=== PATIENT | female | born 1995 | race Caucasian/White ===

== ENCOUNTER 2016-05-22 19:31 | Emergency (ER) | payer OTHER ==
[~2016-05-22] VITALS: Ht 157.5 cm; Wt 88.6 kg
[~2016-05-22 19:31] MED LIST: KEFLEX500 MG PO; MAGIC MOUTHWASH1 ML MM; NORCO 5/3251 TABLET PO; SILVADENE20 GM TP; ZANTAC150 MG PO
[2016-05-22 20:43] LABS: ADD MIUA? YES; BILIRUBIN NEGATIVE; BLOOD NEGATIVE; COLOR YELLOW ((YELLOW)); GLUCOSE (STRIP) NEGATIVE; KETONES NEGATIVE; LEUKOCYTES LARGE; NITRITE NEGATIVE; PROTEIN (STRIP) NEGATIVE; SPECIFIC GRAVITY 1.019 (1.000-1.030); UROBILINOGEN 0.2 MG/DL (0.2-1.0)
[2016-05-22 20:55] LABS: BACTERIA 3+; CASTS NONE SEEN /LPF; CRYSTALS NONE SEEN; EPITHELIAL CELLS 1+; MUCUS NONE SEEN; PATHOLOGICAL CAST NONE SEEN; SMALL ROUND CELL NONE SEEN; UCUL ADDED? YES; WHITE BLOOD CELLS 20-30 /HPF (0-5); YEAST-LIKE CELL NONE SEEN
[2016-05-22 21:03] LABS: EOSINOPHIL (%) 0.5 % (0-5); HEMATOCRIT 36.4 % (36.0-46.0); IMMATURE GRANULOCYTE (%) 0.1 % (0.0-0.7); IMMATURE GRANULOCYTE COUNT 0.1 K/uL; MCH 30.1 PG (29.0-34.0); MCHC 34.6 G/DL (30.0-36.0); MCV 86.9 FL (83-99); MEAN PLAT.VOLUME 8.7 uM^3 (9.5-12.4); MONOCYTE (%) 9.5 % (3-12); MONOCYTE COUNT 0.7 K/uL (0-0.8); NEUTROPHIL (%) 61.8 % (45-76); NEUTROPHIL COUNT 4.6 K/uL (1.8-6.4); PLATELET COUNT 313 K/uL (156-360); RBC DIS.WIDTH-CV 11.6 % (11.8-14.6); RBC DIS.WIDTH-SD 35.2 % (39-53); RED BLOOD COUNT 4.19 M/uL (3.80-5.20); WHITE BLOOD COUNT 7.4 K/uL (4.1-10.2)
[2016-05-22] MEDS ORDERED: KEFLEX500 MG PO (22:51)
[2016-05-22 22:58] VITALS: BP 123/78
== END 2016-05-22 22:59 | disposition home or self-care (01) ==
LOC: EME 19:31
PROVIDERS: Physician Assistant
DX: O23.41 Unspecified infection of urinary tract in pregnancy, first trimester (principal); O20.9 Hemorrhage in early pregnancy, unspecified; Z3A.01 Less than 8 weeks gestation of pregnancy
CPT/HCPCS: 76801; 81003; 84702; 85025; 86900; 86901; 87086; 99281; 99283

== ENCOUNTER 2016-06-28 18:02 | Emergency (ER) | payer OTHER ==
[~2016-06-28] VITALS: Ht 157.5 cm; Wt 88.9 kg
[2016-06-28 18:18] LABS: HEMATOCRIT 35.9 % (36.0-46.0); MCH 30.7 PG (29.0-34.0); MCHC 35.4 G/DL (30.0-36.0); MCV 86.7 FL (83-99); MEAN PLAT.VOLUME 8.9 uM^3 (9.5-12.4); PLATELET COUNT 276 K/uL (156-360); RBC DIS.WIDTH-SD 37.2 % (39-53); RED BLOOD COUNT 4.14 M/uL (3.80-5.20)
[2016-06-28 19:28] LABS: ADD MIUA? YES; BILIRUBIN NEGATIVE; BLOOD NEGATIVE; COLOR YELLOW ((YELLOW)); GLUCOSE (STRIP) NEGATIVE; KETONES NEGATIVE; LEUKOCYTES LARGE; NITRITE NEGATIVE; PROTEIN (STRIP) NEGATIVE; SPECIFIC GRAVITY 1.018 (1.000-1.030); UROBILINOGEN 0.2 MG/DL (0.2-1.0)
[2016-06-28 19:46] LABS: BACTERIA RARE /HPF; EPITHELIAL CELLS 2+ /HPF; MUCUS TRACE /LPF; RED BLOOD CELLS 0-5 /HPF (0-5); UCUL ADDED? NO; WHITE BLOOD CELLS 20-30 /HPF (0-5)
[2016-06-28] MEDS ORDERED: KEFLEX500 MG PO (21:11)
[2016-06-28 21:19] VITALS: BP 109/57
== END 2016-06-28 21:23 | disposition home or self-care (01) ==
LOC: EME 18:02
DX: O23.41 Unspecified infection of urinary tract in pregnancy, first trimester (principal); M54.5 Low back pain; Z3A.12 12 weeks gestation of pregnancy
CPT/HCPCS: 76801; 81003; 84702; 85027; 99281; 99284

== ENCOUNTER 2016-09-04 22:39 | Outpatient (CLI) | payer OTHER ==
[2016-09-04 23:00] VITALS: BP 101/66
== END 2016-09-05 01:30 | disposition home or self-care (01) ==
LOC: LDRP-OP 22:39 → 2WEST 22:40 → LDRP-OP 02-11 10:29
DX: O26.892 Other specified pregnancy related conditions, second trimester (principal); R10.10 Upper abdominal pain, unspecified; Z3A.21 21 weeks gestation of pregnancy
CPT/HCPCS: G0378

== ENCOUNTER 2016-09-17 15:02 | Outpatient (CLI) | payer OTHER ==
[2016-09-17 15:38] VITALS: BP 122/67
[2016-09-17 17:09] LABS: ADD MIUA? YES; BILIRUBIN NEGATIVE; BLOOD NEGATIVE; COLOR YELLOW ((YELLOW)); GLUCOSE (STRIP) NEGATIVE; KETONES NEGATIVE; LEUKOCYTES LARGE; NITRITE NEGATIVE; PROTEIN (STRIP) NEGATIVE; SPECIFIC GRAVITY 1.023 (1.000-1.030); UROBILINOGEN 0.2 MG/DL (0.2-1.0)
[2016-09-17 17:22] LABS: BACTERIA NONE SEEN /HPF; EPITHELIAL CELLS 1+ /HPF; MUCUS NONE SEEN /LPF; RED BLOOD CELLS 0-5 /HPF (0-5); UCUL ADDED? NO
[2016-09-17 22:34] LABS: CANDIDA DNA PROBE POSITIVE; GARDNERELLA DNA PROBE NEGATIVE; INTERNAL CONTROL VALID? YES
[2016-09-20 14:40] LABS: CHLAMYDIA TRACHOMATIS NEGATIVE; NEISSERIA GONORRHOEAE NEGATIVE
== END 2016-09-17 19:47 | disposition home or self-care (01) ==
LOC: LDRP-OP → EME 15:02 → LDRP-OP 15:02 → EDSTATUS 15:06 → 2WEST 15:18 → EDSTATUS 15:20 → 2WEST 19:47 → LDRP-OP 02-11 03:00
PROVIDERS: Advanced Practice Midwife; Obstetrics & Gynecology
DX: O26.892 Other specified pregnancy related conditions, second trimester (principal); Z3A.23 23 weeks gestation of pregnancy; K21.9 Gastro-esophageal reflux disease without esophagitis
CPT/HCPCS: 59025; 81003; 87480; 87491; 87510; 87591; 87660; G0378

== ENCOUNTER 2016-09-30 18:52 | Outpatient (CLI) | payer OTHER ==
[2016-09-30 19:28] VITALS: BP 125/68
== END 2016-09-30 19:35 | disposition home or self-care (01) ==
LOC: LDRP-OP 18:52 → 2WEST 18:56 → LDRP-OP 02-11 21:45
DX: O36.8120 Decreased fetal movements, second trimester, not applicable or unspecified (principal); Z3A.25 25 weeks gestation of pregnancy
CPT/HCPCS: G0378

== ENCOUNTER 2016-10-12 20:58 | Emergency (ER) | payer OTHER ==
[~2016-10-12] VITALS: Ht 170.2 cm; Wt 102.9 kg
[2016-10-12] MEDS ORDERED: PEN-VEE K,VEET500 MG PO (22:09)
[2016-10-12 22:25] VITALS: BP 152/76
== END 2016-10-12 22:26 | disposition home or self-care (01) ==
LOC: EME 20:58 → EXP 20:58
PROC: 3E0T3BZ Introduction of Anesthetic Agent into Peripheral Nerves and Plexi, Percutaneous Approach (ICD-10-PCS; principal; 2016-10-12)
DX: K02.9 Dental caries, unspecified (principal); Z33.1 Pregnant state, incidental; Z3A.27 27 weeks gestation of pregnancy
CPT/HCPCS: 99281; 99284

== ENCOUNTER 2016-10-24 17:29 | Outpatient (CLI) | payer OTHER ==
[~2016-10-24] VITALS: Ht 157.5 cm; Wt 100.7 kg
[~2016-10-24 17:29] MED LIST changes: +PEN-VEE K,VEET500 MG PO
[2016-10-24 18:01] VITALS: BP 98/51
[2016-10-24] MEDS ORDERED: PRENATAL TABLE1 EAC3 PO (18:31)
[2016-10-24] MEDS ORDERED: FIORICET 50-301 EACH PO (18:33)
[2016-10-24 19:04] VITALS: BP 110/63
[2016-10-24 19:45] LABS: ADD MIUA? YES; BILIRUBIN NEGATIVE; BLOOD NEGATIVE; COLOR YELLOW ((YELLOW)); GLUCOSE (STRIP) NEGATIVE; KETONES NEGATIVE; LEUKOCYTES LARGE; NITRITE NEGATIVE; PROTEIN (STRIP) NEGATIVE; SPECIFIC GRAVITY 1.027 (1.000-1.030); UROBILINOGEN 0.2 MG/DL (0.2-1.0)
[2016-10-24 21:20] LABS: BACTERIA 2+ /HPF; EPITHELIAL CELLS 4+ /HPF; MUCUS TRACE /LPF; WHITE BLOOD CELLS 40-50 /HPF (0-5)
== END 2016-10-24 19:30 | disposition home or self-care (01) ==
LOC: LDRP-OP → 2WEST 17:31 → LDRP-OP 02-11 19:51
PROVIDERS: Advanced Practice Midwife
DX: O36.8120 Decreased fetal movements, second trimester, not applicable or unspecified (principal); Z3A.28 28 weeks gestation of pregnancy
CPT/HCPCS: 59025; 76818; 81003; G0378

== ENCOUNTER 2016-11-23 19:00 | Inpatient (IN) | payer OTHER ==
[~2016-11-23] VITALS: Ht 154.9 cm; Wt 102.7 kg
[~2016-11-23 19:00] MED LIST changes: +FIORICET 50-301 EACH PO; +PRENATAL TABLE1 EAC3 PO
[2016-11-23 19:11] VITALS: BP 134/83
[2016-11-23 19:46] LABS: ADD MIUA? YES; BILIRUBIN NEGATIVE; BLOOD NEGATIVE; COLOR AMBER ((YELLOW)); GLUCOSE (STRIP) 50; KETONES 5; LEUKOCYTES LARGE; NITRITE NEGATIVE; PROTEIN (STRIP) 30; SPECIFIC GRAVITY 1.027 (1.000-1.030); UROBILINOGEN 0.2 MG/DL (0.2-1.0)
[2016-11-23 20:19] LABS: BACTERIA 2+ /HPF; CASTS PRESENT /LPF; CRYSTALS NONE SEEN; EPITHELIAL CELLS 3+ /HPF; HYALINE CASTS 0-5 /LPF; MUCUS 2+ /LPF; RED BLOOD CELLS 0-5 /HPF (0-5); UCUL ADDED? YES
[2016-11-23 20:19] LABS: EOSINOPHIL (%) 0.8 % (0-5); EOSINOPHIL COUNT 0.1 K/uL (0-0.3); HEMATOCRIT 32.3 % (36.0-46.0); IMMATURE GRANULOCYTE (%) 0.3 % (0.0-0.7); INSTRUMENT ABS NEUTROPHIL CT 6.9 K/uL; LYMPHOCYTE COUNT 1.7 K/uL (1.0-2.8); MCHC 34.4 G/DL (30.0-36.0); MCV 87.3 FL (83-99); MEAN PLAT.VOLUME 10.4 uM^3 (9.5-12.4); MONOCYTE (%) 9.1 % (3-12); MONOCYTE COUNT 0.9 K/uL (0-0.8); NEUTROPHIL (%) 71.9 % (45-76); NEUTROPHIL COUNT 6.9 K/uL (1.8-6.4); PLATELET COUNT 225 K/uL (156-360); RBC DIS.WIDTH-CV 12.2 % (11.8-14.6); RBC DIS.WIDTH-SD 38.6 % (39-53); WHITE BLOOD COUNT 9.6 K/uL (4.1-10.2)
[2016-11-23 20:36] LABS: GLUCOSE 129 mg/dL (70-99)
[2016-11-23 21:33] LABS: Estimated Average Glucose 105 mg/dL (70-123); HEMOGLOBIN A1c (GLYCOHEMOGLOB) 5.3 % HGB (Below 5.7)
[2016-11-23 21:54] VITALS: BP 104/51
[2016-11-23 22:09] VITALS: BP 116/55
[2016-11-23 22:25] VITALS: BP 115/55
[2016-11-23 22:39] VITALS: BP 130/67
[2016-11-23 23:34] VITALS: BP 131/66
[2016-11-24] VITALS (24 sets, daily range): BP systolic 106–141; BP diastolic 52–85
[2016-11-24 10:44] LABS: TREPONEMA ANTIBODY NEGATIVE (NEGATIVE)
[2016-11-24 11:55] LABS: AMPHETAMINES QUANT VALUE 0 NG/ML; BARBITUATES QUANT VALUE 0 NG/ML; BENZODIAZEPINES QUANT VALUE 0 NG/ML; BENZODIAZEPINES, URINE SCREEN Negative (200 ng/mL); MARIJUANA QUANT VALUE 0 NG/ML; OPIATES QUANTITATIVE VALUE 0 NG/ML; PHENCYCLIDINE QUANT VALUE 0 NG/ML
[2016-11-25] VITALS (10 sets, daily range): BP systolic 106–130; BP diastolic 52–79
[2016-11-26 13:37] LABS: CHLAMYDIA TRACHOMATIS NEGATIVE; NEISSERIA GONORRHOEAE NEGATIVE
== END 2016-11-25 12:20 | disposition home or self-care (01) | DRG 778 ==
LOC: LDRP-OP 19:00 → 2WEST 19:03 → LDRP-OP 02-11 19:54
PROVIDERS: Advanced Practice Midwife
DX: O60.03 Preterm labor without delivery, third trimester (principal); O99.353 Diseases of the nervous system complicating pregnancy, third trimester; O36.8130 Decreased fetal movements, third trimester, not applicable or unspecified; Z3A.33 33 weeks gestation of pregnancy; G43.909 Migraine, unspecified, not intractable, without status migrainosus
CPT/HCPCS: 76805; 80306 90; 81003; 82731; 82947; 83036; 83735; 85025; 86780; 87077; 87081; 87086; 87186; 87491; 87591; G0378; J0702; J3475; J7120

== ENCOUNTER 2016-12-04 07:03 | Inpatient (IN) | payer OTHER ==
[~2016-12-04] VITALS: Ht 160 cm; Wt 130.0 kg
[2016-12-04] VITALS (27 sets, daily range): BP systolic 100–133; BP diastolic 45–83
[2016-12-04 09:19] LABS: EOSINOPHIL (%) 0.4 % (0-5); HEMATOCRIT 33.1 % (36.0-46.0); IMMATURE GRANULOCYTE (%) 0.5 % (0.0-0.7); IMMATURE GRANULOCYTE COUNT 0.1 K/uL; INSTRUMENT ABS NEUTROPHIL CT 7.2 K/uL; LYMPHOCYTE COUNT 1.9 K/uL (1.0-2.8); MCH 28.8 PG (29.0-34.0); MCHC 33.2 G/DL (30.0-36.0); MCV 86.6 FL (83-99); MEAN PLAT.VOLUME 10.5 uM^3 (9.5-12.4); MONOCYTE COUNT 0.9 K/uL (0-0.8); NEUTROPHIL (%) 71.2 % (45-76); NEUTROPHIL COUNT 7.2 K/uL (1.8-6.4); PLATELET COUNT 228 K/uL (156-360); RBC DIS.WIDTH-CV 12.1 % (11.8-14.6); RBC DIS.WIDTH-SD 38.3 % (39-53); RED BLOOD COUNT 3.82 M/uL (3.80-5.20); WHITE BLOOD COUNT 10.1 K/uL (4.1-10.2)
[2016-12-05 05:48] LABS: EOSINOPHIL (%) 0.3 % (0-5); HEMATOCRIT 29.2 % (36.0-46.0); IMMATURE GRANULOCYTE (%) 0.6 % (0.0-0.7); IMMATURE GRANULOCYTE COUNT 0.1 K/uL; INSTRUMENT ABS NEUTROPHIL CT 8.4 K/uL; LYMPHOCYTE COUNT 2.1 K/uL (1.0-2.8); MCHC 33.2 G/DL (30.0-36.0); MCV 87.4 FL (83-99); MEAN PLAT.VOLUME 10.4 uM^3 (9.5-12.4); MONOCYTE (%) 11.6 % (3-12); MONOCYTE COUNT 1.4 K/uL (0-0.8); NEUTROPHIL COUNT 8.4 K/uL (1.8-6.4); PLATELET COUNT 214 K/uL (156-360); RBC DIS.WIDTH-CV 12.1 % (11.8-14.6); RBC DIS.WIDTH-SD 38.7 % (39-53); RED BLOOD COUNT 3.34 M/uL (3.80-5.20)
[2016-12-05 07:44] VITALS: BP 111/67
[2016-12-05 15:12] VITALS: BP 112/59
[2016-12-05 22:23] VITALS: BP 104/58
[2016-12-06 07:00] VITALS: BP 125/65
[2016-12-06] MEDS ORDERED: IBUPROFEN800 MG PO (08:50)
[2016-12-06] MEDS ORDERED: CHROMAGEN,1 CAPSULE PO (08:50)
== END 2016-12-06 17:25 | disposition home or self-care (01) | DRG 775 ==
LOC: LDRP-OP 07:03 → 2WEST 07:04 → LDRP-OP 02-11 06:54
PROVIDERS: Advanced Practice Midwife
PROC: 3E0R3CZ (ICD-10-PCS; principal; 2016-12-04)
PROC: 0KQM0ZZ Repair Perineum Muscle, Open Approach (ICD-10-PCS; principal; 2016-12-04)
PROC: 00HU33Z Insertion of Infusion Device into Spinal Canal, Percutaneous Approach (ICD-10-PCS; principal; 2016-12-04)
PROC: 10E0XZZ Delivery of Products of Conception, External Approach (ICD-10-PCS; principal; 2016-12-04)
DX: O60.14X0 Preterm labor third trimester with preterm delivery third trimester, not applicable or unspecified (principal); O42.913 Preterm premature rupture of membranes, unspecified as to length of time between rupture and onset of labor, third trimester; O70.1 Second degree perineal laceration during delivery; O99.824 Streptococcus B carrier state complicating childbirth; O99.02 Anemia complicating childbirth; D50.9 Iron deficiency anemia, unspecified; O99.214 Obesity complicating childbirth; E66.9 Obesity, unspecified; Z68.35 Body mass index [BMI] 35.0-35.9, adult; Z3A.34 34 weeks gestation of pregnancy; Z37.0 Single live birth
CPT/HCPCS: 85025; 88307; C1755; J0595; J2540; J3010; J7120

== ENCOUNTER 2017-01-15 01:18 | Emergency (ER) | payer OTHER ==
[~2017-01-15] VITALS: Ht 160 cm; Wt 99.5 kg
[~2017-01-15 01:18] MED LIST changes: +CHROMAGEN,1 CAPSULE PO; +IBUPROFEN800 MG PO
[2017-01-15 02:00] LABS: MCHC 32.4 G/DL (30.0-36.0); MCV 86.5 FL (83-99); MEAN PLAT.VOLUME 8.7 uM^3 (9.5-12.4); PLATELET COUNT 287 K/uL (156-360); RBC DIS.WIDTH-CV 12.6 % (11.8-14.6); RBC DIS.WIDTH-SD 39.8 % (39-53); RED BLOOD COUNT 3.93 M/uL (3.80-5.20); WHITE BLOOD COUNT 6.5 K/uL (4.1-10.2)
[2017-01-15 02:13] LABS: CHLORIDE 106 mEq/L (99-109); POTASSIUM 3.5 mEq/L (3.7-5.4); SODIUM 142 mEq/L (136-147)
[2017-01-15 02:14] LABS: GLUCOSE 87 mg/dL (70-99)
[2017-01-15 02:16] LABS: ANION GAP 12 MEQ/L (2-14)
[2017-01-15 02:18] LABS: GFR ESTIMATE (CALCULATED) > 59 mL/min/
[2017-01-15 02:19] LABS: UREA NITROGEN (BUN) 11 mg/dL (9-23)
[2017-01-15 02:29] LABS: QUANTITATIVE HCG < 4.0 MIU/ML
[2017-01-15 03:04] LABS: ADD MIUA? YES; BILIRUBIN NEGATIVE; BLOOD LARGE; COLOR YELLOW ((YELLOW)); GLUCOSE (STRIP) NEGATIVE; KETONES NEGATIVE; LEUKOCYTES MODERATE; NITRITE NEGATIVE; PROTEIN (STRIP) 100; SPECIFIC GRAVITY 1.028 (1.000-1.030); UROBILINOGEN 0.2 MG/DL (0.2-1.0)
[2017-01-15 04:01] LABS: BACTERIA 2+ /HPF; EPITHELIAL CELLS 3+ /HPF; MUCUS 3+ /LPF
[2017-01-15 04:03] LABS: RED BLOOD CELLS 20-30 /HPF (0-5); UCUL ADDED? YES
[2017-01-15 04:04] LABS: CASTS NONE SEEN /LPF; CRYSTALS NONE SEEN; WHITE BLOOD CELLS 15-20 /HPF (0-5)
[2017-01-15] MEDS ORDERED: BACTRIM,SEPT1 TABLET PO (04:13)
[2017-01-15 04:28] VITALS: BP 123/92
== END 2017-01-15 04:28 | disposition home or self-care (01) ==
LOC: EXP 01:18 → EME 01:18 → EXP 04:28
PROVIDERS: Physician Assistant
DX: J06.9 Acute upper respiratory infection, unspecified (principal); N39.0 Urinary tract infection, site not specified
CPT/HCPCS: 80048; 81003; 84702; 85027; 87086; 99281; 99284

== ENCOUNTER → 2017-07-22 | Emergency (ER) | payer OTHER ==
[~2017-07-22] VITALS: Ht 157.5 cm; Wt 97.5 kg
[~2017-07-22] MED LIST changes: +AMOXICILLIN875 MG PO; +BACTRIM,SEPT1 TABLET PO
[2017-07-22 07:56] VITALS: BP 114/74
== END | disposition home or self-care (01) ==
LOC: EME 06:16
DX: J03.90 Acute tonsillitis, unspecified (principal); R09.81 Nasal congestion
CPT/HCPCS: 99281; 99283